=== PATIENT | female | born 1950 | race Caucasian/White ===

== ENCOUNTER 2017-07-29 20:18 | Emergency (ER) | payer BC, OTHER ==
[~2017-07-29] VITALS: Ht 152.4 cm; Wt 86.0 kg
[2017-07-29 20:23] VITALS: Ht 152.4 cm; Wt 86.0 kg
[2017-07-29 22:39] LABS: URINE BLOOD (Dip) POC Trace-intact (NEGATIVE)
--- NOTE | 2017-07-29 22:54 | ERA ---
ER Documentation Chief Complaint Date/Time DATE: 07/29/17 TIME: 22:53 Chief Complaint had appendectomy in june 2016, there's a bump at surgical area acc to fam HPI The patient is a 77-year-old female, presenting with right lower quadrant incisional pain where she had appendectomy in June 2016 in [facility]. She denies fever, chills, neck pain, chest pain, dyspnea, vomiting, dysuria, diarrhea. She does not smoke nor drink Past medical history: Hypertension, right breast lumpectomy Past surgical history: Appendectomy ROS All systems reviewed and are negative except as per history of present illness. Medications Home Meds Active Scripts Ibuprofen* (Motrin*) 600 Mg Tab, 600 MG PO Q6H Y for PAIN, #20 TAB Prov:EDER CARDOZA MD 07/30/17 Allergies Allergies: Coded Allergies: No Known Allergy (Unverified , 07/30/17) Physical Exam Vitals Vital Signs Date Time Temp Pulse Resp B/P Pulse Ox O2 Delivery O2 Flow Rate FiO2 07/30/17 04:26 88 19 121/60 100 Room Air 07/30/17 02:15 89 19 111/58 100 Room Air 07/29/17 23:03 83 19 120/66 100 Room Air 07/29/17 20:23 98.4 80 19 163/73 100 Physical Exam Const: No acute distress. Head: Atraumatic. Eyes: Normal Conjunctiva. ENT: Normal External Ears, Nose and Mouth. Neck: Full range of motion. No meningismus. Resp: Clear to auscultation bilaterally. Cardio: Regular rate and rhythm. Abd: Soft, non distended, normal bowel sounds, non tender. Small right lower quadrant incisional hernia, Skin: No petechiae or rashes. Back: No midline or flank tenderness. Ext: No cyanosis, or edema. Neur: Awake and alert. No focal deficit Psych: Normal Mood and Affect. Result Diagram: 07/29/17225007/29/172250 Results 24 hrs Laboratory Tests Test 07/29/17 22:46 07/29/17 22:51 Bedside Urine pH (LAB) 6.0 Bedside Urine Protein (LAB) Negative Bedside Urine Glucose (UA) Negative Bedside Urine Ketones (LAB) Negative Bedside Urine Blood Trace-intact Bedside Urine Nitrite (LAB) Negative Bedside Urine Leukocyte Esterase (L Negative White Blood Count 11.810^3/ul Red Blood Count 5.3110^6/ul Hemoglobin 13.7g/dl Hematocrit 42.7% Mean Corpuscular Volume 80.4fl Mean Corpuscular Hemoglobin 25.8pg Mean Corpuscular Hemoglobin Concent 32.1g/dl Red Cell Distribution Width 14.2% Platelet Count 70907^3/UL Mean Platelet Volume 11.4fl Neutrophils % 49.5% Lymphocytes % 36.3% Monocytes % 5.6% Eosinophils % 7.7% Basophils % 0.6% Nucleated Red Blood Cells % 0.0/100WBC Neutrophils # 5.910^3/ul Lymphocytes # 4.310^3/ul Monocytes # 0.710^3/ul Eosinophils # 0.910^3/ul Basophils # 0.110^3/ul Nucleated Red Blood Cells # 0.010^3/ul Sodium Level 139mmol/L Potassium Level 3.5mmol/L Chloride Level 101mmol/L Carbon Dioxide Level 28mmol/L Anion Gap 14 Blood Urea Nitrogen 17mg/dl Creatinine 0.98mg/dl Glucose Level 108mg/dl Calcium Level 10.2mg/dl Total Bilirubin 0.4mg/dl Direct Bilirubin 0.00mg/dl Indirect Bilirubin 0.4mg/dl Aspartate Amino Transf (AST/SGOT) 30IU/L Alanine Aminotransferase (ALT/SGPT) 31IU/L Alkaline Phosphatase 110IU/L Total Protein 8.2g/dl Albumin 4.4g/dl Globulin 3.80g/dl Albumin/Globulin Ratio 1.15 Lipase 108U/L Current Medications Medications (Trade) Dose Ordered Sig/Michelle Route PRN Reason Start Time Stop Time Status Last Admin Dose Admin Sodium Chloride (NS) 100 ml @ ud STK-MED ONCE .ROUTE 07/30/17 00:59 07/30/17 01:00 DC 07/30/17 01:01 Iohexol (Omnipaque 300mg/ ml) 150 ml STK-MED ONCE .ROUTE 07/30/17 00:59 07/30/17 01:00 DC 07/30/17 01:00 Ketorolac Tromethamine (Toradol) 30 mg ONCE STAT IV 07/30/17 04:03 07/30/17 04:04 DC 07/30/17 04:25 [place] [address] Rad[facility] Main Line: [phone] DIAGNOSTIC IMAGING REPORT Patient: ELAYNE BLANCAS : 1950 Age: 67 Sex: F MR #: [id number] [facility] #: [id number] DOS: 07/29/17 2317 Ordering MD: EDER CARDOZA MD Location: E/R Room/Bed: PROCEDURE: CT ABDOMEN/PELVIS WITH CONTRAST CLINICAL INDICATION: 67-year-old female with abdominal pain. TECHNIQUE: The study was performed utilizing a [email or web address] 64-slice CT scanner. Direct axial sections were obtained through the abdomen and pelvis with the use of 100 cc of Omnipaque-300 nonionic intravenous contrast material. Sagittal and coronal reformations were obtained. One or more of the following dose reduction techniques were utilized: automated exposure control, adjustment of the mA and/or kV according to patient's size or use of iterative reconstruction technique. The images were reviewed on a PACS workstation. CTD/ vol = 21.6 mGy; Total Exam DLP = 1283 point a mGy-cm. COMPARISON: None. FINDINGS: There is trace bibasilar subsegmental atelectasis. There is no evidence for significant pleural effusion. The liver has a normal size and contour. There is diffuse decreased density throughout the liver consistent with fatty infiltration without focal areas of abnormal density or contrast enhancement. No intrahepatic nor extrahepatic biliary ductal dilatation is seen. The gallbladder demonstrates no wall thickening nor pericholecystic fluid. No biliary stones are evident. The pancreas is without areas of abnormal attenuation or contrast enhancement. This spleen is identified and has a normal size without abnormal density or contrast enhancement. There is a nodular density within the right adrenal gland measuring approximately 17 x 10 x 10 mm on axial image 3-54 which appears to have fluid density suggestive of an adenoma. There is a small left adrenal nodule measuring approximately 7 x 7 x 7 mm on axial image 3-49. The kidneys are functional bilaterally without abnormal density. No hydroureteronephrosis nor nephroureterolithiasis is evident. The urinary bladder contains urine. There is a right lower quadrant lateral abdominal wall hernia with an opening measuring approximately 3.3 x 5.4 cm containing loops of small bowel but without transition point to suggest obstruction. The appendix is not visualized presumably from prior appendectomy. The uterus is atrophic. There is a left ovarian cyst measuring approximately 1.9 x 2.8 x 1.9 cm. There is a small calcific density within the left ovary. There is no significant free fluid. The aortoiliac vessels are diffusely calcified but without aneurysmal dilatation. Degenerative changes are seen throughout the spine. IMPRESSION: 1. Hepatic steatosis. 2. Probable right adrenal 17 x 10 mm adenoma with smaller left adrenal 7 x 7 mm nodule not well characterized. 3. Right lower quadrant lateral abdominal wall hernia containing loops of bowel without evidence for obstruction. 4. Left ovarian cyst. 5. Vascular calcifications. 6. Degenerative changes within the spine. .Rickey Keating MD, MD Date Time Electronically viewed and signed by .Rickey Keating MD, on 07/30/2017 01:33 .M/ CC: EDER CARDOZA MD MEDICAL MAKING DECISION: The patient is a 67-year-old female, presenting with incisional hernia. She was treated with Toradol 30 mg IV for pain with good response. She is stable for outpatient follow-up The differential diagnoses considered include but are not limited to cholelithiasis, cholecystitis, cystitis, pancreatitis, hepatitis, gastritis, peptic ulcer disease, gastric ulcer, appendicitis, diverticulitis, cholangitis, choledocholithiasis, partial small bowel obstruction. Departure Diagnosis: Primary Impression: Incisional hernia Additional Impressions: Adrenal adenoma Hepatic steatosis Left ovarian cyst Condition: Good Comments She was discharged with Motrin I discussed the findings with the patient. I advised the patient to follow-up with the primary physician for referral to see a general surgeon in about 1-2 days, sooner if needed and return if any concern. EDER CARDOZA MD Jul 29, 2017 22:54
[2017-07-30 00:07] LABS: BASOPHIL # 0.1 10^3/ul (0.0-0.1); BASOPHILS % 0.6 % (0.0-2.0); EOSINOPHILS # 0.9 10^3/ul (0.0-0.5); EOSINOPHILS % 7.7 % (0.0-7.0); HEMATOCRIT 42.7 % (37.0-47.0); HEMOGLOBIN 13.7 g/dl (12.0-16.0); LYMPHOCYTES # 4.3 10^3/ul (0.8-2.9); LYMPHOCYTES % 36.3 % (15.0-51.0); MEAN CORPUSCULAR HEMOGLOBIN 25.8 pg (29.0-33.0); MEAN CORPUSCULAR HGB CONC 32.1 g/dl (32.0-37.0); MEAN CORPUSCULAR VOLUME 80.4 fl (82.0-101.0); MEAN PLATELET VOLUME 11.4 fl (7.4-10.4); MONOCYTE # 0.7 10^3/ul (0.3-0.9); MONOCYTES % 5.6 % (0.0-11.0); NEUTROPHIL # 5.9 10^3/ul (1.6-7.5); NEUTROPHILS % 49.5 % (39.0-77.0); PLATELET COUNT 429 10^3/UL (140-415); RED BLOOD COUNT 5.31 10^6/ul (4.20-5.40); RED CELL DISTRIBUTION WIDTH 14.2 % (11.5-14.5); WHITE BLOOD COUNT 11.8 10^3/ul (4.8-10.8)
[2017-07-30 00:25] LABS: ALBUMIN 4.4 g/dl (3.3-4.9); ALBUMIN/GLOBULIN RATIO 1.15; BILIRUBIN,INDIRECT 0.4 mg/dl (0-1.1); BILIRUBIN,TOTAL 0.4 mg/dl (0.2-1.3); CALCIUM 10.2 mg/dl (8.4-10.2); CREATININE 0.98 mg/dl (0.44-1.00); POTASSIUM 3.5 mmol/L (3.5-5.1); TOTAL PROTEIN 8.2 g/dl (6.1-8.1)
[2017-07-30] MEDS ORDERED: IOHEXOL 300MG/ML 150 ML BTL ONE (00:59)
[2017-07-30] MEDS ORDERED: SOD CHLORIDE 0.9% 100 ML ONE (00:59)
--- NOTE | 2017-07-30 01:34 | RADRPT ---
PROCEDURE: CT ABDOMEN/PELVIS WITH CONTRAST CLINICAL INDICATION: 67-year-old female with abdominal pain. TECHNIQUE: The study was performed utilizing a [employer] VCT 64-slice CT scanner. Direct axia l sections were obtained through the abdomen and pelvis with the use of 100 cc of Omnipaque-300 sukhdev onic intravenous contrast material. Sagittal and coronal reformations were obtained. One or more of the following dose reduction techniques were utilized: automated exposure control, adjustment of the mA and/or kV according to patient's size or use of iterative reconstruction technique. The images were reviewed on a PACS workstation. CTD/vol = 21.6 mGy; Total Exam DLP = 1283 point a mGy-cm. COMPARISON: None. FINDINGS: There is trace bibasilar subsegmental atelectasis. There is no evidence for significant pleural eff usion. The liver has a normal size and contour. There is diffuse decreased density throughout the l iver consistent with fatty infiltration without focal areas of abnormal density or contrast enhancem ent. No intrahepatic nor extrahepatic biliary ductal dilatation is seen. The gallbladder demonstrate s no wall thickening nor pericholecystic fluid. No biliary stones are evident. The pancreas is witho ut areas of abnormal attenuation or contrast enhancement. This spleen is identified and has a gregg l size without abnormal density or contrast enhancement. There is a nodular density within the right adrenal gland measuring approximately 17 x 10 x 10 mm on axial image 3-54 which appears to have flu id density suggestive of an adenoma. There is a small left adrenal nodule measuring approximately 7 x 7 x 7 mm on axial image 3-49. The kidneys are functional bilaterally without abnormal density. No hydroureteronephrosis nor nephroureterolithiasis is evident. The urinary bladder contains urine. The re is a right lower quadrant lateral abdominal wall hernia with an opening measuring approximately 3 .3 x 5.4 cm containing loops of small bowel but without transition point to suggest obstruction. The appendix is not visualized presumably from prior appendectomy. The uterus is atrophic. There is a l eft ovarian cyst measuring approximately 1.9 x 2.8 x 1.9 cm. There is a small calcific density withi n the left ovary. There is no significant free fluid. The aortoiliac vessels are diffusely calcifie d but without aneurysmal dilatation. Degenerative changes are seen throughout the spine. IMPRESSION: 1. Hepatic steatosis. 2. Probable right adrenal 17 x 10 mm adenoma with smaller left adrenal 7 x 7 mm nodule not well marychuy racterized. 3. Right lower quadrant lateral abdominal wall hernia containing loops of bowel without evidence fo r obstruction. 4. Left ovarian cyst. 5. Vascular calcifications. 6. Degenerative changes within the spine. .Rickey Keating MD, MD Date Time Electronically viewed and signed by .Rickey Keating MD, MD on 07/30/2017 01:33 .Shadi/
[2017-07-30] MEDS ORDERED: IBUP-1542 PO (03:17)
[2017-07-30] MEDS ORDERED: KETOROLAC 30 MG INJ IV STA (04:03)
[2017-07-30 04:26] VITALS: BP 121/60; PULSE 88; RESP 19
== END 2017-07-30 04:28 | disposition home or self-care (01) ==
LOC: E/R 20:18
DX: K43.2 Incisional hernia without obstruction or gangrene (principal); D35.01 Benign neoplasm of right adrenal gland; K76.0 Fatty (change of) liver, not elsewhere classified; N83.202 Unspecified ovarian cyst, left side; I10 Essential (primary) hypertension
CPT/HCPCS: 36415; 74177; 80053; 81003; 83690; 85025; 96374; 99285; J1885; Q9967; Z7610

== ENCOUNTER 2018-04-08 15:04 | Observation (INO) | END 2018-04-09 16:50 | disposition home or self-care (01) ==

== ENCOUNTER 2019-08-01 11:54 | Emergency (ER) | payer BC ==
[~2019-08-01] VITALS: Ht 162.6 cm; Wt 110.0 kg
[~2019-08-01 11:54] MED LIST: CARV3.12 PO; HYDR25TA6 PO; LOSA100T15 PO; ONDA4TAB14 PO
[2019-08-01 12:00] VITALS: Ht 162.6 cm; Wt 110.0 kg
[2019-08-01] MEDS ORDERED: SOD CHLORIDE 0.9% 1,000 ML IV STA (12:15)
[2019-08-01] MEDS ORDERED: ONDANSETRON 4 MG INJ IV STA (12:15)
[2019-08-01 14:19] VITALS: BP 128/65; PULSE 76; RESP 17
== END 2019-08-01 14:19 | disposition home or self-care (01) ==
LOC: E/R 11:54
DX: R53.1 Weakness (principal); R11.2 Nausea with vomiting, unspecified
CPT/HCPCS: 36415; 80048; 84484; 85025; 93005; 96374; 99284; J2405; J7030